=== PATIENT | female | born 1995 | race Caucasian/White ===

== ENCOUNTER 2021-11-03 03:10 | Inpatient (IN) | payer OTHER ==
[2021-11-03] MEDS ORDERED: DEXTROSE 5%-LACTATED RINGERS 1,000 ML IV SCH ×2 (04:05→08:00)
[2021-11-03] MEDS ORDERED: AMPICILLIN - 2 GM in SODIUM CHLORIDE 100 ML IVPB ONE (07:50)
[2021-11-03] MEDS ORDERED: AMPICILLIN SODIUM 2 GM VIAL ONE (07:52)
[2021-11-03 08:19] VITALS: BMI 33.8
[2021-11-03] MEDS ORDERED: LIDOCAINE HCL 1% PRESERVATIVE FREE - 30ML VIAL ONE (08:33)
[2021-11-03] MEDS ORDERED: OXYTOCIN 20 UNITS in 0.9% NS 20 UNIT/1,000 ML INFUS.BAG IV ONE (08:33)
[2021-11-03 08:45] LABS: BASO % 0.4 % (0-2.0); EOS % 0.6 % (0-4.5); HEMOGLOBIN 10.9 GM/dL (10.7-15.3); LYMPH % 18.1 % (8-40); MCH 28.3 pg (25.7-33.7); MEAN CELL VOLUME 83.3 fl (80-96); MONO % 6.8 % (3.8-10.2); NEUT % 74.1 % (42.8-82.8); PLATELET COUNT 138 10^3/uL (134-434); RBC 3.85 M/mm3 (3.60-5.2); RDW 13.9 % (11.6-15.6); WHITE BLOOD COUNT 9.1 K/mm3 (4.0-10.0)
[2021-11-03 09:23] LABS: INR 0.94 (0.83-1.09); PROTHROMBIN TIME (PATIENT) 10.8 SEC (9.7-13.0)
[2021-11-03 09:26] LABS: ACTIVATED PTT 29.8 SECONDS (25.2-36.5)
[2021-11-03 09:33] LABS: BLOOD UREA NITROGEN 6.6 mg/dL (7-18); CALCIUM 8.6 mg/dL (8.5-10.1)
[2021-11-03] MEDS ORDERED: WITCH HAZEL 50% (TUCKS) 40 PAD/JAR PAD TP PRN (09:36)
[2021-11-03] MEDS ORDERED: ACETAMINOPHEN 325 MG TABLET (FP) PO PRN (09:36)
[2021-11-03] MEDS ORDERED: BENZOCAINE 28 GM HEMORRHOIDAL OINTMENT TP PRN (09:36)
[2021-11-03] MEDS ORDERED: METHYLERGONOVINE MALEATE 0.2 MG/1 ML AMP IM PRN (09:36)
[2021-11-03] MEDS ORDERED: BISACODYL 10 MG SUPP.RECT RC PRN (09:36)
[2021-11-03] MEDS ORDERED: BENZOCAINE 20% 57 GM BOTTLE TP PRN (09:36)
[2021-11-03 09:37] LABS: CREATININE 0.5 mg/dL (0.55-1.3)
[2021-11-03] MEDS ORDERED: OXYTOCIN 20 UNITS in 0.9% NS 20 UNIT/1,000 ML INFUS.BAG IV SCH (09:45)
[2021-11-03] MEDS ORDERED: PRENATAL VITAMINS W/ FOLIC ACID TABLET (FP) PO ONE (10:08)
[2021-11-03] MEDS: PRENATAL VITAMINS W/ FOLIC ACID TABLET (FP) PO SCH (10:09)
[2021-11-03] MEDS ORDERED: AMPICILLIN - 1 GM in SODIUM CHLORIDE 100 ML IVPB SCH (11:50)
[2021-11-03] MEDS: IBUPROFEN 600 MG TABLET (FP) PO PRN (16:34)
[2021-11-03] MEDS: FERROUS SO4 325 MG TABLET (FP) PO SCH (16:34)
[2021-11-04 08:46] LABS: BASO % 0.4 % (0-2.0); EOS % 0.6 % (0-4.5); HEMATOCRIT 29.4 % (32.4-45.2); HEMOGLOBIN 9.5 GM/dL (10.7-15.3); LYMPH % 22.9 % (8-40); MCH 27.5 pg (25.7-33.7); MCHC 32.4 g/dl (32.0-36.0); MEAN CELL VOLUME 84.8 fl (80-96); MEAN PLT VOLUME 11.3 fl (7.5-11.1); MONO % 6.7 % (3.8-10.2); NEUT % 69.4 % (42.8-82.8); PLATELET COUNT 143 10^3/uL (134-434); RBC 3.46 M/mm3 (3.60-5.2); RDW 14.3 % (11.6-15.6)
[2021-11-04] MEDS: FERROUS SO4 325 MG TABLET (FP) PO SCH ×2 (08:50→18:13)
[2021-11-04] MEDS: PRENATAL VITAMINS W/ FOLIC ACID TABLET (FP) PO SCH (09:12)
[2021-11-04] MEDS: IBUPROFEN 600 MG TABLET (FP) PO PRN (18:18)
[2021-11-04] MEDS ORDERED: SENNOSIDES/DOCUSATE COMBO (SENNA PLUS) TABLET (UD) PO PRN (22:00)
[2021-11-05] MEDS: FERROUS SO4 325 MG TABLET (FP) PO SCH (10:04)
[2021-11-05] MEDS: PRENATAL VITAMINS W/ FOLIC ACID TABLET (FP) PO SCH (10:04)
[2021-11-05 10:11] VITALS: BP 114/65; PULSE 92; TEMP 98.3
== END 2021-11-05 11:15 | disposition home or self-care (01) | DRG 560 ==
LOC: JDEL 03:10 → JLDR 07:45 → J3W 11:00
PROVIDERS: ADMIT Obstetrics & Gynecology; ATTEND Obstetrics & Gynecology
PROC: 10E0XZZ Delivery of Products of Conception, External Approach (ICD-10-PCS; principal; 2021-11-03)
DX: O99.824 Streptococcus B carrier state complicating childbirth (principal); Z3A.40 40 weeks gestation of pregnancy; Z37.0 Single live birth
CPT/HCPCS: 36415; 59409; 80048; 85025; 85610; 85730; 86850; 86900; 86901

== ENCOUNTER 2023-12-29 02:50 | Inpatient (IN) | payer OTHER ==
[2023-12-29] MEDS: ELECTROLYTE-148 SOLN 1,000 ML IV SCH (05:00)
[2023-12-29] MEDS ORDERED: OXYTOCIN 20 UNITS in 0.9% NS 20 UNIT/1,000 ML INFUS.BAG IV ONE ×2 (05:02→07:43)
[2023-12-29 05:24] LABS: BASO % 0.3 % (0-2.0); EOS % 0.2 % (0-4.5); HEMOGLOBIN 11.8 GM/dL (10.7-15.3); LYMPH % 12.7 % (8-40); MCHC 32.7 g/dl (32.0-36.0); MEAN CELL VOLUME 85.7 fl (80-96); MEAN PLT VOLUME 10.3 fl (7.5-11.1); MONO % 5.7 % (3.8-10.2); NEUT % 81.1 % (42.8-82.8); PLATELET COUNT 185 10^3/uL (134-434); RBC 4.21 M/mm3 (3.60-5.2); RDW 15.2 % (11.6-15.6); WHITE BLOOD COUNT 16.2 K/mm3 (4.0-10.0)
[2023-12-29] MEDS: OXYTOCIN 20 UNITS in 0.9% NS 20 UNIT/1,000 ML INFUS.BAG IV SCH (05:30)
[2023-12-29] MEDS ORDERED: MISOPROSTOL 200 MCG TABLET ONE (05:31)
[2023-12-29] MEDS: MISOPROSTOL 100 MCG TABLET PV ONE (05:35)
[2023-12-29 05:39] LABS: POTASSIUM 3.7 mmol/L (3.5-5.1)
[2023-12-29 05:41] LABS: BLOOD UREA NITROGEN 9.2 mg/dL (7-18); CALCIUM 8.7 mg/dL (8.5-10.1); INR 1.03 (0.83-1.09)
[2023-12-29 05:43] LABS: ACTIVATED PTT 30.2 SECONDS (25.2-36.5)
[2023-12-29 05:45] LABS: CREATININE 0.5 mg/dL (0.55-1.3)
[2023-12-29] MEDS ORDERED: ELECTROLYTE-148 SOLN 1,000 ML IV SCH (05:45)
[2023-12-29] MEDS ORDERED: BISACODYL 10 MG SUPP.RECT RC PRN (05:48)
[2023-12-29] MEDS ORDERED: WITCH HAZEL 50% (TUCKS) 40 PAD/JAR PAD TP PRN (05:48)
[2023-12-29] MEDS ORDERED: MISOPROSTOL 100 MCG TABLET PV ONE (05:49)
[2023-12-29] MEDS: METHYLERGONOVINE MALEATE 0.2 MG/1 ML AMP IM ONE (05:50)
[2023-12-29 06:09] LABS: SYPHILIS W/ RPR CONF NON-REACTIVE (NONREACTIVE)
[2023-12-29 06:34] VITALS: BMI 31.6
[2023-12-29 06:38] LABS: HIV INTERPRETATION NEGATIVE (NEGATIVE)
[2023-12-29] MEDS ORDERED: IBUPROFEN 600 MG TABLET (FP) PO ONE (06:54)
[2023-12-29] MEDS: IBUPROFEN 600 MG TABLET (FP) PO PRN (07:00)
[2023-12-29 08:50] VITALS: RESP 18
[2023-12-29] MEDS ORDERED: MISOPROSTOL 200 MCG TABLET NR ONE (09:15)
[2023-12-29] MEDS: ACETAMINOPHEN 325 MG TABLET (FP) PO PRN (12:13)
[2023-12-30 07:04] LABS: BASO % 0.3 % (0-2.0); EOS % 0.8 % (0-4.5); HEMATOCRIT 32.5 % (32.4-45.2); HEMOGLOBIN 10.7 GM/dL (10.7-15.3); LYMPH % 25.5 % (8-40); MCH 28.8 pg (25.7-33.7); MCHC 32.8 g/dl (32.0-36.0); MEAN CELL VOLUME 87.6 fl (80-96); MEAN PLT VOLUME 10.1 fl (7.5-11.1); MONO % 7.9 % (3.8-10.2); NEUT % 65.5 % (42.8-82.8); PLATELET COUNT 166 10^3/uL (134-434); RBC 3.71 M/mm3 (3.60-5.2); RDW 15.2 % (11.6-15.6); WHITE BLOOD COUNT 10.3 K/mm3 (4.0-10.0)
[2023-12-30 09:46] VITALS: BP 101/54; PULSE 69; TEMP 98.2
[2023-12-30] MEDS ORDERED: SENNOSIDES/DOCUSATE COMBO (SENNA PLUS) TABLET (UD) PO PRN (22:00)
== END 2023-12-30 12:00 | disposition home or self-care (01) | DRG 560 ==
LOC: JDEL 02:50 → JLDR 04:30 → J3W 08:00
PROVIDERS: ADMIT Student in an Organized Health Care Education/Training Program; ATTEND Student in an Organized Health Care Education/Training Program
PROC: 10E0XZZ Delivery of Products of Conception, External Approach (ICD-10-PCS; principal; 2023-12-29)
DX: O80 Encounter for full-term uncomplicated delivery (principal); Z3A.37 37 weeks gestation of pregnancy; Z37.0 Single live birth
CPT/HCPCS: 36415; 80048; 85025; 85610; 85730; 86780; 86850; 86900; 86901; 87389

== ENCOUNTER 2024-02-25 07:37 | Day surgery (SDC) | payer OTHER ==
[2024-02-25] MEDS ORDERED: ACETAMINOPHEN INJECTION 100 ML IVPB ONE (10:08)
[2024-02-25] MEDS ORDERED: ONDANSETRON 4 MG/2 ML VIAL ONE (10:08)
[2024-02-25] MEDS ORDERED: FAMOTIDINE 20 MG/50 ML IVPB 20 MG/50 ML MG IVPB ONE (10:08)
[2024-02-25] MEDS: FAMOTIDINE 20 MG/50 ML IVPB 20 MG/50 ML MG IVPB ONE (10:25)
[2024-02-25] MEDS: LACTATED RINGERS SOLUTION 1000 ML INFUS.BAG IV ONE ×2 (10:25→14:22)
[2024-02-25] MEDS: ACETAMINOPHEN 1000 MG/100 ML BAG IVPB ONE (10:25)
[2024-02-25] MEDS: ONDANSETRON 4 MG/2 ML VIAL IVPUSH ONE (10:25)
[2024-02-25 10:38] LABS: BASO % 0.3 % (0-2.0); EOS % 0.2 % (0-4.5); HEMATOCRIT 39.4 % (32.4-45.2); HEMOGLOBIN 13.3 GM/dL (10.7-15.3); LYMPH % 18.8 % (8-40); MCHC 33.8 g/dl (32.0-36.0); MEAN CELL VOLUME 85.8 fl (80-96); MEAN PLT VOLUME 9.2 fl (7.5-11.1); MONO % 4.5 % (3.8-10.2); NEUT % 76.2 % (42.8-82.8); PLATELET COUNT 229 10^3/uL (134-434); RBC 4.59 M/mm3 (3.60-5.2); RDW 14.2 % (11.6-15.6); WHITE BLOOD COUNT 7.6 K/mm3 (4.0-10.0)
[2024-02-25 10:40] LABS: EPI CELLS 34 /uL (0-25.1); HYALINE CASTS 1 /uL (0-3.1); URINE APPEARANCE CLEAR; URINE BACTERIA 2 /uL (0-1359); URINE BILIRUBIN NEGATIVE (NEGATIVE); URINE COLOR DK YELLOW; URINE GLUCOSE (UA) NEGATIVE (NEGATIVE); URINE KETONE NEGATIVE (NEGATIVE); URINE LEUK ESTERASE NEGATIVE (NEGATIVE); URINE NITRITE NEGATIVE (NEGATIVE); URINE PROTEIN NEGATIVE (NEGATIVE); URINE RBC 245 /uL (0-23.9); URINE WBC 11 /uL (0-25.8)
[2024-02-25 10:44] LABS: INR 1.05 (0.83-1.09); PROTHROMBIN TIME (PATIENT) 11.9 SEC (9.7-13.0)
[2024-02-25 10:47] LABS: ACTIVATED PTT 37.3 SECONDS (25.2-36.5)
[2024-02-25 11:36] LABS: POTASSIUM 3.7 mmol/L (3.5-5.1)
[2024-02-25 11:39] LABS: CALCIUM 9.2 mg/dL (8.5-10.1)
[2024-02-25 11:40] LABS: ALBUMIN 4.2 g/dl (3.4-5.0); BLOOD UREA NITROGEN 12.3 mg/dL (7-18); MAGNESIUM 2.4 mg/dL (1.8-2.4)
[2024-02-25 11:43] LABS: CREATININE 0.7 mg/dL (0.55-1.3)
[2024-02-25 11:44] LABS: BILIRUBIN,TOTAL 1.1 mg/dL (0.2-1)
[2024-02-25] MEDS ORDERED: KETOROLAC TROMETHAMINE 15 MG/ML VIAL IVPUSH PRN (14:22)
[2024-02-25] MEDS ORDERED: ONDANSETRON 4 MG/2 ML VIAL IVPUSH PRN (14:22)
[2024-02-25] MEDS: AMPICILLIN NA/SULBACTAM NA 3 GM in SODIUM CHLORIDE 100 ML IVPB SCH (15:02)
[2024-02-25] MEDS: LACTATED RINGERS SOLUTION 1,000 ML/1,000 ML INFUS.BAG IV SCH (15:41)
[2024-02-25] MEDS: PIPERACILLIN/TAZOB 3.375 GM 3.375 GM in DEXTROSE 5%-WATER - 50 ML IVPB SCH (22:27)
[2024-02-25 22:51] VITALS: BMI 29.5
[2024-02-26 08:13] LABS: INR 1.16 (0.83-1.09); PROTHROMBIN TIME (PATIENT) 13.3 SEC (9.7-13.0)
[2024-02-26 08:17] LABS: BASO % 0.7 % (0-2.0); EOS % 1.1 % (0-4.5); HEMATOCRIT 35.2 % (32.4-45.2); HEMOGLOBIN 12.1 GM/dL (10.7-15.3); MCH 29.6 pg (25.7-33.7); MCHC 34.3 g/dl (32.0-36.0); MEAN CELL VOLUME 86.1 fl (80-96); MEAN PLT VOLUME 9.6 fl (7.5-11.1); NEUT % 55.2 % (42.8-82.8); PLATELET COUNT 203 10^3/uL (134-434); RBC 4.09 M/mm3 (3.60-5.2); RDW 14.5 % (11.6-15.6); WHITE BLOOD COUNT 5.8 K/mm3 (4.0-10.0)
[2024-02-26 08:32] LABS: POTASSIUM 3.7 mmol/L (3.5-5.1)
[2024-02-26 08:34] LABS: CALCIUM 8.7 mg/dL (8.5-10.1)
[2024-02-26 08:35] LABS: ALBUMIN 3.5 g/dl (3.4-5.0); BLOOD UREA NITROGEN 10.1 mg/dL (7-18)
[2024-02-26 08:38] LABS: CREATININE 0.8 mg/dL (0.55-1.3)
[2024-02-26 08:39] LABS: BILIRUBIN,TOTAL 1.5 mg/dL (0.2-1); TOT PROT 6.4 g/dl (6.4-8.2)
[2024-02-26] MEDS ORDERED: INDOMETHACIN 50 MG RECTAL SUPPOSITORY PR ONE (10:00)
[2024-02-26] MEDS ORDERED: BUPIVACAINE HCL/PF 0.25% (2.5MG/ML) 10 ML VIAL ONE (10:08)
[2024-02-26] MEDS ORDERED: ONDANSETRON 4 MG/2 ML VIAL IVPUSH PRN ×2 (10:34→14:25)
[2024-02-26] MEDS ORDERED: PROMETHAZINE HCL 25 MG/1 ML VIAL IVPB PRN ×2 (10:34→14:25)
[2024-02-26] MEDS ORDERED: MIDAZOLAM HCL 2 MG/2 ML SINGLE DOSE VIAL ONE (10:51)
[2024-02-26] MEDS ORDERED: PROPOFOL 20 ML ONE (10:51)
[2024-02-26] MEDS ORDERED: FENTANYL CITRATE/PF 50 MCG/ML VIAL ONE ×5 (10:51→15:20)
[2024-02-26] MEDS ORDERED: LIDOCAINE HCL/PF 2% SDV 5ML VIAL ONE (10:52)
[2024-02-26] MEDS ORDERED: ROCURONIUM BROMIDE 50 MG/5 ML SYRINGE ONE (10:55)
[2024-02-26] MEDS ORDERED: SODIUM CHLORIDE 0.9% P/F 10 ML VIAL IJ ONE (12:58)
[2024-02-26] MEDS ORDERED: ONDANSETRON 4 MG/2 ML VIAL ONE (13:10)
[2024-02-26] MEDS ORDERED: DEXAMETHASONE SOD PHOSPHATE 4 MG/1 ML VIAL ONE (13:10)
[2024-02-26] MEDS: PIPERACILLIN/TAZOBACTAM 3.375 GM VIAL IVPB ONE (13:20)
[2024-02-26] MEDS ORDERED: ACETAMINOPHEN INJECTION 100 ML IVPB ONE (13:28)
[2024-02-26] MEDS ORDERED: SUGAMMADEX SODIUM 200 MG/2 ML VIAL ONE (13:51)
[2024-02-26] MEDS ORDERED: KETOROLAC TROMETHAMINE 30 MG/1 ML VIAL ONE (13:52)
[2024-02-26] MEDS: BUPIVACAINE HCL/PF 0.25% (2.5MG/ML) 10 ML VIAL IJ ONE (13:54)
[2024-02-26] MEDS: LACTATED RINGERS SOLUTION 1,000 ML IV SCH ×2 (14:00→15:45)
[2024-02-26] MEDS: PIPERACILLIN/TAZOB 3.375 GM 3.375 GM in DEXTROSE 5%-WATER - 50 ML IVPB SCH ×2 (20:18→20:19)
[2024-02-26] MEDS: INDOMETHACIN 50 MG RECTAL SUPPOSITORY PR ONE (20:19)
[2024-02-26] MEDS: KETOROLAC TROMETHAMINE 15 MG/ML VIAL IVPUSH PRN (23:46)
[2024-02-27 12:41] LABS: BASO % 0.3 % (0-2.0); EOS % 0.4 % (0-4.5); HEMATOCRIT 36.6 % (32.4-45.2); LYMPH % 29.9 % (8-40); MCH 28.7 pg (25.7-33.7); MCHC 32.8 g/dl (32.0-36.0); MEAN CELL VOLUME 87.3 fl (80-96); MEAN PLT VOLUME 9.6 fl (7.5-11.1); MONO % 6.3 % (3.8-10.2); NEUT % 63.1 % (42.8-82.8); PLATELET COUNT 223 10^3/uL (134-434); RBC 4.19 M/mm3 (3.60-5.2); RDW 14.5 % (11.6-15.6); WHITE BLOOD COUNT 10.2 K/mm3 (4.0-10.0)
[2024-02-27 13:02] LABS: POTASSIUM 3.5 mmol/L (3.5-5.1)
[2024-02-27 13:05] LABS: ALBUMIN 3.6 g/dl (3.4-5.0); BLOOD UREA NITROGEN 12.1 mg/dL (7-18)
[2024-02-27 13:08] LABS: CREATININE 0.8 mg/dL (0.55-1.3)
[2024-02-27 13:09] LABS: BILIRUBIN,TOTAL 0.8 mg/dL (0.2-1); TOT PROT 6.9 g/dl (6.4-8.2)
[2024-02-27 13:13] LABS: BILIRUBIN,DIRECT 0.3 mg/dL (0.0-0.2)
[2024-02-27 13:44] VITALS: BP 120/75; PULSE 82; RESP 20; TEMP 98.2
== END 2024-02-27 14:40 | disposition home or self-care (01) ==
LOC: JER 07:37 → INTOOBSV 13:58 → JERBED 13:58 → UNDOADMOB 13:58 → JERBED 15:32 → J7W 20:46 → JERBED 20:46 → JASUSAT 02-26 11:38 → J7W 02-26 12:18 → JASUSAT 02-27 14:40
PROVIDERS: ATTEND Internal Medicine
PROC: 3E033GC Introduction of Other Therapeutic Substance into Peripheral Vein, Percutaneous Approach (ICD-10-PCS; principal; 2024-02-25)
PROC: 3E033NZ Introduction of Analgesics, Hypnotics, Sedatives into Peripheral Vein, Percutaneous Approach (ICD-10-PCS; 2024-02-25)
PROC: 3E033GC Introduction of Other Therapeutic Substance into Peripheral Vein, Percutaneous Approach (ICD-10-PCS; 2024-02-25)
DX: K80.42 Calculus of bile duct with acute cholecystitis without obstruction (principal); R11.2 Nausea with vomiting, unspecified; R00.1 Bradycardia, unspecified; R10.11 Right upper quadrant pain; R10.13 Epigastric pain; M54.9 Dorsalgia, unspecified
CPT/HCPCS: 36415; 74181-TC; 76705-TC; 80048; 80053; 80076; 81003; 83690; 83735; 84703; 85025; 85610; 85730; 86850; 86900; 86901; 87086; 88304-TC; 93005; 93010; 94760; 99285-25; J0131